=== PATIENT | female | born 1995 | race Caucasian/White ===

== ENCOUNTER 2017-01-25 08:52 | Emergency (ER) | payer OTHER ==
[~2017-01-25] VITALS: Wt 56.7 kg
[~2017-01-25 08:52] MED LIST: AMOXICILLIN500 MG PO; AMOXIL500 MG PO; AUGMENTIN ES-6050 ML PO; BENADRYL ALLERG25 M5 PO; CELEXA10 MG PO; CELEXA20 MG PO; CELEXA40 MG PO; DONNATAL1 TAB PO; FLEXERIL5 MG PO; IBUPROFEN600 MG PO; LIDEX 0.05% CRE15 GM T; MACROBID100 M1 PO; MEDROL DOSEPAK4 MG PO; MIRALAX POWDER255 GM PO; MOTRIN400 MG PO; NAPROSYN500 MG PO; PEN-VEE K500 MG PO; PEPCID20 MG PO; PRENATAL1 TA1 PO; ROBITUSSIN AC 110 ML PO; TUMS500 MG PO; ULTRAM50 MG PO; ZITHROMAX250 MG PO; Zofran4 MG PO; [UNRECOGNIZED DRUG - OTHER]
[2017-01-25] MEDS ORDERED: OMEPRAZOLE40 MG PO (08:54)
[2017-01-25] MEDS ORDERED: OLANZAPINE2.5 MG PO (08:54)
[2017-01-25] MEDS ORDERED: CITALOPRAM HYDR40 MG PO (08:55)
[2017-01-25 09:35] LABS: BASO % 0.3 % (0.0-1.0); EOS % 0.3 % (1.0-4.0); HEMATOCRIT 38.4 % (37.0-47.0); HEMOGLOBIN 12.6 g/dl (12.0-16.0); IG # 0.1 10*3/uL (0.0-0.1); LYMPH % 10.3 % (27.0-41.0); MEAN CELL VOLUME 87.3 fl (81.0-99.0); MEAN CORPUSCULAR HGB 28.6 pg (27.0-31.0); MEAN CORPUSCULAR HGB CONC 32.8 g/dl (33.0-37.0); MEAN PLATELET VOLUME 10.4 fl (9.6-12.3); MONO % 9.4 % (3.0-9.0); NEUT % 79.2 % (47.0-73.0); PLATELET COUNT AUTOMATED 192 10*3/uL (130-400); RED CELL DISTRI WIDTH 12.5 % (0-14.5); WHITE BLOOD COUNT 10.1 10*3/uL (4.8-10.8)
[2017-01-25 09:50] LABS: ALBUMIN 3.8 gm/dl (3.1-4.5); ALKALINE PHOSPHATASE 62 U/L (45-117); BILIRUBIN, TOTAL 0.4 mg/dl (0.2-1.0); BUN 4 mg/dl (7-24); CARBON DIOXIDE 27 mmol/L (21-32); CHLORIDE 106 mmol/L (98-107); EST GLOM FILT AFRICAN AMERICAN > 60 ml/min; GLUCOSE 98 mg/dL (65-99); POTASSIUM 3.6 mmol/L (3.5-5.1); SGOT/AST 13 IU/L (3-35); SGPT/ALT 20 U/L (12-78); SODIUM 142 mmol/L (136-145); TOTAL PROTEIN 7.2 gm/dL (6.4-8.2)
[2017-01-25 11:05] LABS: BILIRUBIN NEGATIVE (NEGATIVE); BLOOD 2+ (NEGATIVE); CLARITY SL CLOUDY (CLEAR); COLOR YELLOW (YELLOW); GLUCOSE NEGATIVE (NEGATIVE); KETONE NEGATIVE (NEGATIVE); LEUKO ESTERASE NEGATIVE (NEGATIVE); NITRITE NEGATIVE (NEGATIVE); PH 6.5 (5.0-9.0); PROTEIN NEGATIVE (NEGATIVE); SPECIFIC GRAVITY 1.025 (1.005-1.030); UROBILINOGEN 0.2 E.U./dl (0.2-1.0)
[2017-01-25 11:14] LABS: MUCOUS 3+
[2017-01-25 11:15] LABS: BACTERIA TRACE; URINE REFLEX COMMENT YES (NO)
[2017-01-25] MEDS ORDERED: ZOFRAN ODT4 MG SL (11:19)
[2017-01-25] MEDS ORDERED: ZYRTEC10 MG PO (11:19)
== END 2017-01-25 11:37 | disposition home or self-care (01) ==
LOC: ED 08:52
PROVIDERS: Nurse Practitioner Family
DX: B34.9 Viral infection, unspecified (principal); Z98.890 Other specified postprocedural states; Z79.899 Other long term (current) drug therapy

== ENCOUNTER 2017-03-25 11:01 | Emergency (ER) | payer OTHER ==
[~2017-03-25] VITALS: Ht 175.2 cm; Wt 59.0 kg
[~2017-03-25 11:01] MED LIST changes: +CITALOPRAM HYDR40 MG PO; +OLANZAPINE2.5 MG PO; +OMEPRAZOLE40 MG PO; +ZOFRAN ODT4 MG SL; +ZYRTEC10 MG PO
[2017-03-25 11:07] VITALS: BP 111/64
[2017-03-25] MEDS ORDERED: CYCLOBENZAPRINE10 MG PO (12:19)
[2017-03-25] MEDS ORDERED: EC NAPROSYN500 MG PO (12:19)
== END 2017-03-25 12:43 | disposition home or self-care (01) ==
LOC: ED 11:01
DX: S46.912A Strain of unspecified muscle, fascia and tendon at shoulder and upper arm level, left arm, initial encounter (principal); X50.0XXA Overexertion from strenuous movement or load, initial encounter; Y93.89 Activity, other specified; Y92.69 Other specified industrial and construction area as the place of occurrence of the external cause; Y99.0 Civilian activity done for income or pay

== ENCOUNTER → 2017-12-30 | Outpatient (CLI) | payer OTHER ==
[~2017-12-30] MED LIST changes: +CYCLOBENZAPRINE10 MG PO; +EC NAPROSYN500 MG PO
[2017-12-30 12:49] LABS: HEMATOCRIT 42.4 % (37.0-47.0); HEMOGLOBIN 13.9 g/dl (12.0-16.0); MEAN CELL VOLUME 87.4 fl (81.0-99.0); MEAN CORPUSCULAR HGB 28.7 pg (27.0-31.0); MEAN CORPUSCULAR HGB CONC 32.8 g/dl (33.0-37.0); MEAN PLATELET VOLUME 10.9 fl (9.6-12.3); RED BLOOD COUNT 4.85 10*6/uL (4.10-5.10); RED CELL DISTRI WIDTH 12.1 % (0-14.5); WHITE BLOOD COUNT 5.7 10*3/uL (4.8-10.8)
[2017-12-30 13:05] LABS: ALKALINE PHOSPHATASE 67 U/L (45-117); BUN 10 mg/dl (7-24); CHLORIDE 105 mmol/L (98-107); CHOLESTEROL 113 mg/dL (<200); CREATININE 0.66 mg/dL (0.55-1.02); HDL CHOLESTEROL 69 mg/dl (40-60); LDL CHOLESTEROL 33 mg/dL (9-159); POTASSIUM 3.7 mmol/L (3.5-5.1); SGOT/AST 15 IU/L (3-35); SGPT/ALT 17 U/L (12-78); SODIUM 140 mmol/L (136-145); TOTAL PROTEIN 7.9 gm/dL (6.4-8.2); TRIGLYCERIDES 56 mg/dl (<150); VLDL CHOLESTEROL 11 mg/dL (6-40)
[2017-12-30 13:31] LABS: VITAMIN D, 25-HYDROXY 27.7 ng/mL (30-100)
== END | disposition home or self-care (01) ==
LOC: LAB 12:25
PROVIDERS: Family Medicine
DX: Z13.220 Encounter for screening for lipoid disorders (principal); D64.9 Anemia, unspecified; R53.83 Other fatigue; R79.89 Other specified abnormal findings of blood chemistry

== ENCOUNTER 2018-08-23 19:31 | Emergency (ER) | payer SELFPAY ==
[~2018-08-23] VITALS: Ht 172.7 cm; Wt 54.4 kg
[2018-08-23 19:36] VITALS: BP 119/7
[2018-08-23] MEDS ORDERED: IBUPROFEN600 MG PO (20:43)
== END 2018-08-23 21:04 | disposition home or self-care (01) ==
LOC: ED 19:31
DX: M75.31 Calcific tendinitis of right shoulder (principal)

== ENCOUNTER 2019-08-02 08:38 | Emergency (ER) | payer SELFPAY ==
[~2019-08-02] VITALS: Ht 170.1 cm; Wt 59.9 kg
[2019-08-02 08:41] VITALS: BP 137/82
[2019-08-02 09:10] LABS: BASO # 0.1 10*3/uL (0.0-0.1); BASO % 0.8 % (0.0-1.0); EOS # 0.2 10*3/uL (0.0-0.4); EOS % 2.9 % (1.0-4.0); HEMATOCRIT 39.9 % (37.0-47.0); HEMOGLOBIN 13.1 g/dl (12.0-16.0); LYMPH # 2.6 10*3/uL (1.3-4.4); LYMPH % 39.4 % (27.0-41.0); MEAN CELL VOLUME 91.7 fl (81.0-99.0); MEAN CORPUSCULAR HGB 30.1 pg (27.0-31.0); MEAN CORPUSCULAR HGB CONC 32.8 g/dl (33.0-37.0); MEAN PLATELET VOLUME 10.3 fl (9.6-12.3); MONO # 0.6 10*3/uL (0.1-1.0); MONO % 9.5 % (3.0-9.0); NEUT # 3.1 10*3/uL (2.3-7.9); NEUT % 47.1 % (47.0-73.0); PLATELET COUNT AUTOMATED 226 10*3/uL (130-400); RED BLOOD COUNT 4.35 10*6/uL (4.10-5.10); RED CELL DISTRI WIDTH 12.3 % (0-14.5); WHITE BLOOD COUNT 6.7 10*3/uL (4.8-10.8)
[2019-08-02 09:20] LABS: BILIRUBIN NEGATIVE (NEGATIVE); BLOOD NEGATIVE (NEGATIVE); CLARITY CLEAR (CLEAR); COLOR YELLOW (YELLOW); GLUCOSE NEGATIVE (NEGATIVE); KETONE NEGATIVE (NEGATIVE); LEUKO ESTERASE NEGATIVE (NEGATIVE); NITRITE NEGATIVE (NEGATIVE); SPECIFIC GRAVITY <= 1.005 (1.005-1.030); UROBILINOGEN 0.2 E.U./dl (0.2-1.0)
[2019-08-02 09:24] LABS: ALBUMIN 4.2 gm/dl (3.1-4.5); ALKALINE PHOSPHATASE 61 U/L (45-117); BUN 9 mg/dl (7-24); CHLORIDE 103 mmol/L (98-107); CREATININE 0.64 mg/dL (0.55-1.02); POTASSIUM 3.6 mmol/L (3.5-5.1); SGOT/AST 17 IU/L (3-35); SGPT/ALT 20 U/L (12-78); SODIUM 138 mmol/L (136-145); TOTAL PROTEIN 7.6 gm/dL (6.4-8.2)
[2019-08-02 09:32] LABS: BETA-HCG, QUANT < 1.0 mIU/mL (1-3)
[2019-08-02 09:40] LABS: BACTERIA TRACE
[2019-08-02] MEDS ORDERED: MOTION RELIEF25 M2 PO (10:05)
== END 2019-08-02 10:12 | disposition home or self-care (01) ==
LOC: ED 08:38
PROVIDERS: Emergency Medicine
DX: H83.09 Labyrinthitis, unspecified ear (principal); R35.0 Frequency of micturition; R42 Dizziness and giddiness; R51 Headache

== ENCOUNTER → 2021-03-13 | Outpatient (CLI) | payer SELFPAY ==
[~2021-03-13] MED LIST changes: +MOTION RELIEF25 M2 PO
[2021-03-13 11:26] LABS: HEMATOCRIT 41.8 % (37.0-47.0); MEAN CELL VOLUME 89.9 fl (81.0-99.0); MEAN CORPUSCULAR HGB 28.6 pg (27.0-31.0); MEAN CORPUSCULAR HGB CONC 31.8 g/dl (33.0-37.0); MEAN PLATELET VOLUME 10.8 fl (9.6-12.3); RED BLOOD COUNT 4.65 10*6/uL (4.10-5.10); RED CELL DISTRI WIDTH 11.9 % (0-14.5); WHITE BLOOD COUNT 6.9 10*3/uL (4.8-10.8)
[2021-03-13 11:45] LABS: ALBUMIN 3.9 gm/dl (3.1-4.5); BUN 7 mg/dl (7-24); CHLORIDE 106 mmol/L (98-107); CHOLESTEROL 126 mg/dL (<200); CREATININE 0.63 mg/dL (0.55-1.02); POTASSIUM 3.7 mmol/L (3.5-5.1); SGOT/AST 9 IU/L (3-35); SGPT/ALT 18 U/L (12-78); SODIUM 142 mmol/L (136-145); TOTAL PROTEIN 7.5 gm/dL (6.4-8.2); TRIGLYCERIDES 54 mg/dl (<150)
[2021-03-13 11:46] LABS: ALKALINE PHOSPHATASE 65 U/L (45-117); LDL CHOLESTEROL 50 mg/dL (9-159)
[2021-03-14 03:06] LABS: HEPATITIS B SURFACE AB Non Reactive (.)
[2021-03-14 15:06] LABS: MUMPS ANTIBODIES, IGG 9.6 AU/mL (Immune >10.9); VARICELLA-ZOSTER IGG <135 index (Immune >165)
== END | disposition home or self-care (01) ==
LOC: LAB 10:45
PROVIDERS: ATTEND Family Medicine
DX: Z02.0 Encounter for examination for admission to educational institution (principal); R53.83 Other fatigue; Z13.220 Encounter for screening for lipoid disorders

== ENCOUNTER 2021-05-30 12:20 | Emergency (ER) | payer SELFPAY ==
[~2021-05-30] VITALS: Ht 172.7 cm; Wt 73.9 kg
[2021-05-30 12:25] VITALS: BP 125/77
== END 2021-05-30 13:10 | disposition home or self-care (01) ==
LOC: ED 12:20
DX: T15.02XA Foreign body in cornea, left eye, initial encounter (principal); Z79.899 Other long term (current) drug therapy; Z98.890 Other specified postprocedural states; X58.XXXA Exposure to other specified factors, initial encounter; Y93.89 Activity, other specified; Y92.89 Other specified places as the place of occurrence of the external cause; Y99.8 Other external cause status

== ENCOUNTER → 2023-04-22 | Outpatient (CLI) | payer SELFPAY ==
[2023-04-22 09:59] LABS: FREE T4 1.16 ng/dl (0.89-1.76); THYROID STIM HORMONE (HS) 3.254 uIU/ml (0.550-4.780)
== END | disposition home or self-care (01) ==
LOC: LAB 08:46
PROVIDERS: ATTEND Family Medicine
DX: R94.6 Abnormal results of thyroid function studies (principal)

== ENCOUNTER 2023-08-11 18:43 | Emergency (ER) | payer OTHER ==
[~2023-08-11] VITALS: Ht 167.6 cm; Wt 59.0 kg
[2023-08-11 19:16] VITALS: BP 134/89
[2023-08-11] MEDS ORDERED: ZANAFLEX4 MG PO (21:45)
[2023-08-11] MEDS ORDERED: NAPROSYN500 MG PO (21:45)
== END 2023-08-11 21:58 | disposition home or self-care (01) ==
LOC: ED 18:43
DX: M75.31 Calcific tendinitis of right shoulder (principal); F41.9 Anxiety disorder, unspecified; K21.9 Gastro-esophageal reflux disease without esophagitis; Z98.890 Other specified postprocedural states

== ENCOUNTER 2023-11-14 06:33 | Emergency (ER) | payer OTHER ==
[~2023-11-14 06:33] MED LIST changes: +ZANAFLEX4 MG PO
[2023-11-14 06:39] VITALS: BP 132/74
[2023-11-14 07:08] LABS: BILIRUBIN Negative (Negative); BLOOD Negative (Negative); CLARITY Cloudy (Clear); COLOR Yellow (Yellow); GLUCOSE Negative (Negative); KETONE 3+ (Negative); NITRITE Negative (Negative); PH 6.5 (4.5-8.0); SPECIFIC GRAVITY 1.025 (1.001-1.030)
[2023-11-14 07:13] LABS: LEUKO ESTERASE Trace (Negative)
[2023-11-14 07:20] LABS: BACTERIA 3+; MUCOUS 3+; YEAST TRACE
[2023-11-14] MEDS ORDERED: OMNICEF300 MG PO (07:45)
== END 2023-11-14 08:05 | disposition home or self-care (01) ==
LOC: ED 06:33
PROVIDERS: Internal Medicine
DX: J06.9 Acute upper respiratory infection, unspecified (principal); R30.0 Dysuria; F41.9 Anxiety disorder, unspecified; Z98.890 Other specified postprocedural states; Z20.822 Contact with and (suspected) exposure to COVID-19

== ENCOUNTER → 2024-10-24 | Outpatient (CLI) | payer OTHER ==
[~2024-10-24] MED LIST changes: +OMNICEF300 MG PO
== END | disposition home or self-care (01) ==
LOC: RAD 12:20
PROVIDERS: ATTEND Family Medicine
DX: U07.1 COVID-19 (principal); R06.02 Shortness of breath

== ENCOUNTER → 2025-01-25 | Outpatient (CLI) | payer OTHER ==
[2025-01-25 11:14] LABS: HEMATOCRIT 42.8 % (37.0-47.0); MEAN CELL VOLUME 90.9 fl (81.0-99.0); MEAN CORPUSCULAR HGB 29.1 pg (27.0-31.0); MEAN PLATELET VOLUME 10.6 fl (9.6-12.3); RED BLOOD COUNT 4.71 10*6/uL (4.10-5.10); RED CELL DISTRI WIDTH 11.8 % (0-14.5); WHITE BLOOD COUNT 6.4 10*3/uL (4.8-10.8)
[2025-01-25 11:41] LABS: ALKALINE PHOSPHATASE 55 U/L (46-116); BUN 9 mg/dl (9-23); CHLORIDE 104 mmol/L (98-107); CHOLESTEROL 138 mg/dL (<200); LDL CHOLESTEROL 57 mg/dL (9-159); POTASSIUM 3.8 mmol/L (3.4-5.1); SGPT/ALT 9 U/L (5-49); TOTAL PROTEIN 7.4 gm/dL (6.0-8.0); TRIGLYCERIDES 73 mg/dl (<150)
[2025-01-25 12:10] LABS: VITAMIN D, 25-HYDROXY 43.9 ng/mL (30-100)
== END | disposition home or self-care (01) ==
LOC: LAB 10:19
PROVIDERS: ATTEND Family Medicine
DX: R06.02 Shortness of breath (principal); R05.9 Cough, unspecified; R53.83 Other fatigue; E55.9 Vitamin D deficiency, unspecified